=== PATIENT | female | born 1980 | race Caucasian/White ===

== ENCOUNTER → 2017-07-01 | Outpatient (CLI) | payer BC ==
[2017-07-01 12:51] LABS: GTGD 50 Grams
[2017-07-02 16:35] LABS: AFP CONCENTRATION 41.4 NG/ML; AFP MULTIPLE OF MEDIAN 0.74; AFPTS GESTATIONAL AGE 19.7 WEEKS; AFPTS INSULIN DEP DIABETIC? NO; AFPTS MATERNAL WT 142 LBS; ALPHA-FETOPROTEIN RACE CAUCASIAN=W; EDD DETERMINED BY ULTRASOUND; HISTORY OF NTD NO; REPEAT SAMPLE? NO
== END | disposition home or self-care (01) ==
LOC: C.LAB1850 09:39
PROVIDERS: ATTEND Obstetrics & Gynecology
DX: Z34.02 Encounter for supervision of normal first pregnancy, second trimester (principal)

== ENCOUNTER → 2017-09-02 | Outpatient (CLI) | payer BC ==
[2017-09-02 12:23] LABS: GTGD 50 Grams
[2017-09-02 12:44] LABS: HEMATOCRIT 32.6 % (37-47); MEAN CELL VOLUME 90.1 fL (80-100); MEAN CORPUSCULAR HEMOGLOBIN 29.8 pg (25-34); MEAN CORPUSCULAR HGB CONC 33.1 g/dl (32-36); PLATELET COUNT 96 K/uL (130-400); PLT ESTIMATE DECREASED; RED BLOOD COUNT 3.62 M/uL (4.2-5.4); WHITE BLOOD COUNT 7.52 K/uL (4.8-10.8)
[2017-09-02 14:20] LABS: URINE APPEARANCE CLEAR (CLEAR); URINE BILIRUBIN NEG (NEG); URINE COLOR DK YELLOW; URINE EPITHELIAL CELL AUTO 20-30 /lpf (0-5); URINE NITRITE NEG (NEG); URINE SPECIFIC GRAVITY 1.019 (1.000-1.030); UROBILINOGEN NEG (NEG)
[2017-09-02 14:27] LABS: MANUAL MICROSCOPIC REQUIRED? NO; REVIEW REQ? NO
== END | disposition home or self-care (01) ==
LOC: C.LAB1850 09:39
PROVIDERS: ATTEND Obstetrics & Gynecology
DX: O99.119 Other diseases of the blood and blood-forming organs and certain disorders involving the immune mechanism complicating pregnancy, unspecified trimester (principal); Z3A.00 Weeks of gestation of pregnancy not specified

== ENCOUNTER 2017-09-15 11:36 | Outpatient (CLI) | payer BC ==
[~2017-09-15] VITALS: Ht 167.6 cm; Wt 71.7 kg
[2017-09-15] MEDS ORDERED: NIFEdipine 10 MG CAP PO STA (12:42)
[2017-09-15 12:54] LABS: BASO % 0.4 %; BASO ABS # 0.04 K/uL (0-0.2); COMPLETE YES; EOS % 0.7 %; HEMATOCRIT 36.7 % (37-47); IG% 0.5 %; LYMPH % 18.5 %; LYMPH ABS # 2.03 K/uL (1.2-3.4); MEAN CELL VOLUME 88.6 fL (80-100); MEAN CORPUSCULAR HEMOGLOBIN 30.2 pg (25-34); MEAN CORPUSCULAR HGB CONC 34.1 g/dl (32-36); MEAN PLATELET VOLUME 11.6 fL (7.4-10.4); MONO % 6.3 %; NEUT % 73.6 %; PLATELET COUNT 107 K/uL (130-400); RED BLOOD COUNT 4.14 M/uL (4.2-5.4)
[2017-09-15 13:15] VITALS: Ht 167.6 cm; Wt 71.7 kg
[2017-09-15] MEDS ORDERED: OPTIRAY 320 IV PRN (13:15)
[2017-09-15 13:20] LABS: ALB/GLOB RATIO 0.6 (0.9-2); BUN/CREATININE RATIO 11.7 (10-20); CALCIUM 8.4 mg/dl (8.5-10.1); CREATININE 0.94 mg/dl (0.60-1.20); POTASSIUM 3.9 mmol/L (3.5-5.1); URIC ACID 5.8 mg/dl (2.6-7.2)
[2017-09-15] MEDS ORDERED: PRENTAB26 PO (13:25)
[2017-09-15] MEDS ORDERED: DEXT1SYP6 (13:25)
[2017-09-15 14:13] LABS: URINE APPEARANCE CLEAR (CLEAR); URINE BILIRUBIN NEG (NEG); URINE COLOR YELLOW; URINE EPITHELIAL CELL AUTO >30 /lpf (0-5); URINE NITRITE NEG (NEG); URINE SPECIFIC GRAVITY 1.011 (1.000-1.030); UROBILINOGEN NEG (NEG); ZZUR CULT IF INDIC CLEAN CATCH NO
[2017-09-15 14:16] LABS: MANUAL MICROSCOPIC REQUIRED? NO; REVIEW REQ? NO
--- NOTE | 2017-09-15 14:31 | DIAGNOSTIC IMAGING REPORT ---
CT ANGIOGRAM OF THE CHEST CLINICAL HISTORY: Dyspnea. Hypertension. . COMPARISON STUDY: No priors. TECHNIQUE: Following the IV administration of 88 cc of Optiray 320, CT angiogram of the chest was performed from the upper abdomen to the thoracic inlet utilizing the pulmonary embolus protocol. Images are reviewed in the axial, sagittal, and coronal planes. 3-D MIPS images are created and assessed. IV contrast was administered without complication. A dose lowering technique was utilized adhering to the principles of ALARA. The examination is degraded by motion artifact. CT DOSE: 272.00 mGy.cm FINDINGS: Thyroid: Imaged portions of the thyroid gland are normal in size and attenuation. Thoracic aorta: The thoracic aorta is normal in caliber and demonstrates standard 3-vessel arch anatomy. No dissection is seen. Pulmonary vasculature: The pulmonary trunk is normal in caliber. There are no filling defects identified in main, lobar, or proximal segmental pulmonary branches to suggest pulmonary embolus. Evaluation of the peripheral branches is degraded by motion artifact. Heart: The heart is normal in size and configuration, and without pericardial effusion. Lungs and pleural spaces: Evaluation of the lung parenchyma is degraded by motion artifact. The trachea and central airways are clear. There are moderate pleural effusions with associated atelectasis. There is patchy airspace consolidation seen throughout the left lung. Patchy consolidation is also seen in the right upper lobe. Mediastinum: There is no mediastinal lymphadenopathy. Jacy: Clear. Axillae: There is no axillary lymphadenopathy. Upper abdomen: Partially visualized upper abdominal viscera is within normal limits. Skeletal structures: No lytic or blastic bony lesions are seen. IMPRESSION: 1. Motion degraded examination. 2. There is no evidence of pulmonary embolus in the main, lobar, or proximal segmental pulmonary arteries. 3. Moderate pleural effusions with bibasilar atelectasis. 4. Patchy airspace consolidation is seen throughout both lungs, left greater than right. This likely represents multifocal pneumonia. Pulmonary edema is considered less likely but is the top differential consideration. Clinical correlation will be required. Electronically signed by: William Trivedi M.D. 09/15/2017 2:30 PM Dictated Date/Time: 09/15/2017 2:26 PM
[2017-09-15] MEDS ORDERED: BENZ1CAP90 PO (15:05)
[2017-09-15] MEDS ORDERED: AZITTAB PO (15:05)
[2017-09-15 15:57] LABS: INFLUENZA A PCR Neg for Influ A (NEG); INFLUENZA B PCR Neg for Influ B (NEG)
== END 2017-09-15 15:30 | disposition home or self-care (01) ==
LOC: C.LD 11:36 → C.OPB 11:36
PROVIDERS: ATTEND Obstetrics & Gynecology
DX: O99.89 Other specified diseases and conditions complicating pregnancy, childbirth and the puerperium (principal); R03.0 Elevated blood-pressure reading, without diagnosis of hypertension; R06.02 Shortness of breath; O99.113 Other diseases of the blood and blood-forming organs and certain disorders involving the immune mechanism complicating pregnancy, third trimester; D69.6 Thrombocytopenia, unspecified; Z3A.30 30 weeks gestation of pregnancy; Z80.3 Family history of malignant neoplasm of breast

== ENCOUNTER → 2017-09-16 | Outpatient (CLI) | payer BC ==
[~2017-09-16] MED LIST: AZITTAB PO; BENZ1CAP90 PO; DEXT1SYP6; PRENTAB26 PO
== END | disposition home or self-care (01) ==
LOC: C.LABSPEC 16:58
PROVIDERS: ATTEND Obstetrics & Gynecology
DX: J02.9 Acute pharyngitis, unspecified (principal)

== ENCOUNTER 2017-09-18 15:27 | Outpatient (CLI) | payer BC ==
[2017-09-18 16:14] LABS: HEMATOCRIT 34.6 % (37-47); MEAN CELL VOLUME 88.5 fL (80-100); MEAN CORPUSCULAR HEMOGLOBIN 30.4 pg (25-34); RED BLOOD COUNT 3.91 M/uL (4.2-5.4); WHITE BLOOD COUNT 9.75 K/uL (4.8-10.8)
[2017-09-18] MEDS ORDERED: BETAMETH SOD PHOS/ACETATE IA 6 MG/ML ONE (16:14)
[2017-09-18 16:21] LABS: PARTIAL THROMBOPLASTIN RATIO 1.2
[2017-09-18 16:25] LABS: MEAN CORPUSCULAR HGB CONC 34.4 g/dl (32-36)
[2017-09-18] MEDS ORDERED: NIFEdipine 10 MG CAP PO ONE ×2 (16:30→17:00)
[2017-09-18 16:33] LABS: MEAN PLATELET VOLUME 11.6 fL (7.4-10.4); PLATELET COUNT 95 K/uL (130-400)
[2017-09-18 16:36] LABS: BASO % 0.3 %; BASO ABS # 0.03 K/uL (0-0.2); COMPLETE YES; EOS % 0.7 %; IG% 0.4 %; LYMPH % 18.3 %; LYMPH ABS # 1.78 K/uL (1.2-3.4); MONO % 5.1 %; NEUT % 75.2 %; PLT ESTIMATE DECREASED
[2017-09-18 16:51] LABS: ALT/SGPT 21 U/L (12-78); AST/SGOT 36 U/L (15-37); BLOOD UREA NITROGEN 11 mg/dl (7-18); BUN/CREATININE RATIO 11.6 (10-20); CALCIUM 8.5 mg/dl (8.5-10.1); CARBON DIOXIDE 22 mmol/L (21-32); CHLORIDE 103 mmol/L (98-107); CREATININE 0.94 mg/dl (0.60-1.20); GLUCOSE 77 mg/dl (70-99); SODIUM 135 mmol/L (136-145)
[2017-09-18] MEDS ORDERED: BETAMETH SOD PHOS/ACETATE IA 6 MG/ML IM ONE (17:00)
[2017-09-18] MEDS ORDERED: MAGNESIUM SULFATE / WTR 1,000 ML IV ONE (17:03)
[2017-09-18] MEDS ORDERED: MAGNESIUM SULFATE 40GM/ WTR 1,000 ML BAG ONE (17:08)
[2017-09-18] MEDS ORDERED: MAGNESIUM SULFATE 4GM / WTR 4 GM BAG ONE (17:08)
[2017-09-18] MEDS ORDERED: MAGNESIUM SULFATE / WTR 1,000 ML IV SCH (17:15)
[2017-09-18] MEDS ORDERED: MAGNESIUM SULFATE 4GM / WTR 100ML IV ONE (17:15)
[2017-09-18] MEDS ORDERED: LIDOCAINE HCL 2% JELLY 30 ML TUBE EXT ONE (18:18)
[2017-09-18] MEDS ORDERED: ACETAMINOPHEN 325 MG TAB ONE (18:39)
[2017-09-18] MEDS ORDERED: ACETAMINOPHEN 325 MG TAB PO STA (18:41)
[2017-09-18] MEDS ORDERED: LACTATED RINGER'S 1000ML 1,000 ML IV SCH (18:45)
== END 2017-09-18 19:47 | disposition short-term general hospital (02) ==
LOC: C.OPB 15:27 → C.LD 15:27 → C.OPB 19:47
PROVIDERS: ATTEND Obstetrics & Gynecology
DX: O16.3 Unspecified maternal hypertension, third trimester (principal); O12.23 Gestational edema with proteinuria, third trimester; O99.113 Other diseases of the blood and blood-forming organs and certain disorders involving the immune mechanism complicating pregnancy, third trimester; D69.6 Thrombocytopenia, unspecified; Z3A.31 31 weeks gestation of pregnancy

== ENCOUNTER 2023-01-26 09:35 | Observation (INO) ==
--- NOTE | 2023-01-26 10:14 | Emergency Department Note ---
Impression & Plan Extravasation of blood, Acute leg pain, Elevated INR ED Provider Note NAME: ELLIE CHERRY AGE: 42 SEX: F : 1980 ARRIVES VIA: Walk-In INFORMANT: Patient ED PROVIDER(S): Sherwin Link DO CHIEF COMPLAINT: Right lower extremity pain HPI: Patient is a 42-year-old female who presents to the ER for right leg pain. Patient notes that this started yesterday has been gradually getting worse. It is worse with movement. Denies any headache or change in vision. No chest pain or shortness of breath. Does have a history of lupus and has had previous clots and strokes and consequently is on Coumadin. No known low Coumadin numbers that she is aware of. Pain is worse with walking. Improves with rest. Denies all other exacerbating or remitting factors. No tingling or numbness. PAST MEDICAL HISTORY:See Below PAST SURGICAL HISTORY:See Below FAMILY HISTORY:See Below SOCIAL HISTORY:See Below HOME MEDICATIONS:See Below ALLERGIES:See Below VITALS:See Below PHYSICAL EXAMINATION: GENERAL: Sitting up in bed, alert, well appearing, well nourished, no distress, non-toxic EYE EXAM: normal conjunctiva. OROPHARYNX:mucous membranes are moist LUNGS: Clear to auscultation. Normal chest wall mechanics HEART: no murmurs, S1 normal and S2 normal ABDOMEN: abdomen soft, non-tender, normo-active bowel sounds, no masses, no rebound or guarding. UPPER EXTREMITIES: upper extremities are grossly normal. LOWER EXTREMITIES: Flexion-extension right hip knee ankle and EHL intact. DP and PT 2 out of 4. Gross sensation intact. Tenderness over the right femur. Fullness in the right proximal femur comparison to the left. Calves are equal bilateral. NEURO EXAM: Normal sensorium, cranial nerves II-XII grossly intact, normal speech, no gross weakness of arms, no gross weakness of legs. MEDICAL DECISION MAKING: Patient is a 42-year-old female who presents the ER for swelling of the right thumb night. IV was established blood work was obtained. Labs show no signific ant leukocytosis. Hemoglobin 11.7 slightly down from 13. INR was elevated at 5.0. BMP along LFTs bilirubin was unremarkable. COVID was negative. Ultrasound shows no DVT. X-ray of the femur was unremarkable. CT shows hematoma with a small amount of ActiV.A.C strap as discussed with radiologist Dr. Tyler. This was discussed with the hospitalist. Does have a known clotting disorder. No recent PEs. Coumadin reversal was discussed with her at bedside and with the current active bleeding 2. This most appropriate. Compartments are soft in the right thigh currently. DP and PT intact. Given 10 units of IV vitamin K. Discussed with the hospitalist for observation. Triage Nursing notes reviewed. Limited review of prior medical records performed Vital Signs: reviewed and remarkable for no significant abnormalities Differential diagnosis: Differential diagnoses includes but is not limited to gastritis, peptic ulcer disease, GERD, gallbladder disease, pancreatitis, small bowel obstruction, appendicitis, diverticulitis, hernia, urinary tract infection, torsion, perforation, trauma, infectious. ER treatment provided: See below Diagnostics interpreted by me include EKG and cardiac monitoring as listed below: -Cardiac Monitoring: An order was placed for continuous cardiac monitoring. The monitor shows a rate of 70 with sinus rhythm. -ECG: none -Laboratory studies:Interpreted by me as stated above in MDM and shown below. Imaging studies: Xrays: As interpreted by me: X-ray of the right femur shows no acute fracture CTs show: CT shows small amount of active extra have into the right thigh Duplex shows no DVT Consultation(s): As described in MDM Procedures:none Past Med/Surg History Medical History Antiphospholipid syndrome History of severe pre-eclampsia reports heart failure, kidney failure, intubated on ventilator after emergency 09/2017 - [facility] Lacunar infarction seen on MRIs Lupus Migraines Mitral valve regurgitation follows kiko/ Dr. Brown Surgical History History of bilateral breast reduction surgery History of History of colonoscopy History of wisdom tooth extraction Family History Grandfather (Maternal) Family history of diabetes mellitus Social History Smoking Status: Never smoker Second Hand Exposure: No; Hx Alcohol Use: Yes Alcohol type: wine Hx Substance Use: No Preferred Language: Kazakh Communication Ability: Effective Factory Hand Required: No Beliefs That Will Affect Care: None Current Living Situation: Spouse Feels Safe at Home: Yes Assistive Devices: Contacts and Glasses Allergies Allergies Allergy/AdvReac Type Severity Reaction Status Date / Time bee venom protein (honey bee) Allergy Intermediate SHORTNESS Verified 01/26/23 15:33 OF BREATH Home Meds Home Medications Medication Instructions Recorded Confirmed aspirin 81 mg chewable tablet 81 mg PO DAILY 01/26/23 01/26/23 ferrous sulfate 325 mg (65 mg 325 mg PO DAILY 01/26/23 01/26/23 iron) tablet hydroxychloroquine 200 mg tablet 300 mg PO HS 01/26/23 01/26/23 loratadine 10 mg tablet 10 mg PO DAILY PRN Allergy Symptoms 01/26/23 01/26/23 magnesium oxide 400 mg PO DAILY 01/26/23 01/26/23 montelukast 10 mg tablet 10 mg PO DAILY 01/26/23 01/26/23 riboflavin (vitamin B2) 400 mg 400 mg PO DAILY 01/26/23 01/26/23 tablet ubrogepant 50 mg tablet (Ubrelvy) 50 mg PO UD PRN Migraine Headache 01/26/23 01/26/23 valacyclovir 500 mg tablet 500 mg PO DAILY 01/26/23 01/26/23 warfarin 5 mg tablet 20 mg PO UD 01/26/23 01/26/23 Results & Data (ED) Vital Signs Vital Signs - 24 hr 01/26/23 09:40 01/26/23 10:21 01/26/23 10:26 Temperature 37.1 C Temperature Source Temporal Artery Scan Pulse Rate 86 Pulse Rate [Apical] 75 Pulse Rate from SpO2 Sensor Respiratory Rate 18 18 Respiratory Effort / Characteristics Non-Labored Spontaneous Respiratory Depth Normal Blood Pressure 127/78 Blood Pressure [Left Arm] 125/80 Blood Pressure Mean 94 Blood Pressure Mean [Left Arm] 95 Pulse Oximetry 99 99 98 Oxygen Delivery Method Room Air Room Air Room Air Sepsis Recent Fever Within 48 Hours No Sepsis New/Unexplained Change in Mental Status No Sepsis Action Taken by Nursing No Action Required 01/26/23 10:52 01/26/23 11:51 01/26/23 14:20 Temperature Temperature Source Pulse Rate 76 Pulse Rate [Apical] 71 80 Pulse Rate from SpO2 Sensor Respiratory Rate 16 18 Respiratory Effort / Characteristics Non-Labored Spontaneous Non-Labored Spontaneous Respiratory Depth Normal Normal Blood Pressure Blood Pressure [Left Arm] 123/93 150/92 H Blood Pressure Mean Blood Pressure Mean [Left Arm] 103 111 Pulse Oximetry 100 98 Oxygen Delivery Method Room Air Room Air Sepsis Recent Fever Within 48 Hours Sepsis New/Unexplained Change in Mental Status Sepsis Action Taken by Nursing 01/26/23 14:47 01/26/23 10:31 01/26/23 11:04 Temperature Temperature Source Pulse Rate 76 80 Pulse Rate [Apical] 78 Pulse Rate from SpO2 Sensor 77 Respiratory Rate 18 22 Respiratory Effort / Characteristics Non-Labored Spontaneous Respiratory Depth Normal Blood Pressure Blood Pressure [Left Arm] 154/94 H Blood Pressure Mean Blood Pressure Mean [Left Arm] 114 Pulse Oximetry 97 98 Oxygen Delivery Method Room Air Sepsis Recent Fever Within 48 Hours Sepsis New/Unexplained Change in Mental Status Sepsis Action Taken by Nursing 01/26/23 11:05 01/26/23 11:05 01/26/23 11:15 Temperature Temperature Source Pulse Rate 76 73 Pulse Rate [Apical] Pulse Rate from SpO2 Sensor 77 73 Respiratory Rate 17 16 Respiratory Effort / Characteristics Respiratory Depth Blood Pressure 116/85 Blood Pressure [Left Arm] Blood Pressure Mean 95 Blood Pressure Mean [Left Arm] Pulse Oximetry 98 99 Oxygen Delivery Method Sepsis Recent Fever Within 48 Hours Sepsis New/Unexplained Change in Mental Status Sepsis Action Taken by Nursing 01/26/23 11:30 01/26/23 11:30 01/26/23 11:45 Temperature Temperature Source Pulse Rate 75 73 Pulse Rate [Apical] Pulse Rate from SpO2 Sensor 75 73 Respiratory Rate 19 15 Respiratory Effort / Characteristics Respiratory Depth Blood Pressure 123/93 Blood Pressure [Left Arm] Blood Pressure Mean 103 Blood Pressure Mean [Left Arm] Pulse Oximetry 96 100 Oxygen Delivery Method Sepsis Recent Fever Within 48 Hours Sepsis New/Unexplained Change in Mental Status Sepsis Action Taken by Nursing 01/26/23 12:00 01/26/23 12:00 01/26/23 12:15 Temperature Temperature Source Pulse Rate 81 80 Pulse Rate [Apical] Pulse Rate from SpO2 Sensor 80 Respiratory Rate 15 20 Respiratory Effort / Characteristics Respiratory Depth Blood Pressure 118/87 Blood Pressure [Left Arm] Blood Pressure Mean 97 Blood Pressure Mean [Left Arm] Pulse Oximetry 99 Oxygen Delivery Method Sepsis Recent Fever Within 48 Hours Sepsis New/Unexplained Change in Mental Status Sepsis Action Taken by Nursing 01/26/23 12:30 01/26/23 14:24 01/26/23 14:30 Temperature Temperature Source Pulse Rate 75 72 86 Pulse Rate [Apical] Pulse Rate from SpO2 Sensor 74 73 87 Respiratory Rate 21 17 14 Respiratory Effort / Characteristics Respiratory Depth Blood Pressure Blood Pressure [Left Arm] Blood Pressure Mean Blood Pressure Mean [Left Arm] Pulse Oximetry 100 100 99 Oxygen Delivery Method Sepsis Recent Fever Within 48 Hours Sepsis New/Unexplained Change in Mental Status Sepsis Action Taken by Nursing 01/26/23 14:43 01/26/23 14:43 01/26/23 14:45 Temperature Temperature Source Pulse Rate 74 84 Pulse Rate [Apical] Pulse Rate from SpO2 Sensor Respiratory Rate 20 16 Respiratory Effort / Characteristics Respiratory Depth Blood Pressure 154/94 H Blood Pressure [Left Arm] Blood Pressure Mean 114 Blood Pressure Mean [Left Arm] Pulse Oximetry Oxygen Delivery Method Sepsis Recent Fever Within 48 Hours Sepsis New/Unexplained Change in Mental Status Sepsis Action Taken by Nursing 01/26/23 15:00 01/26/23 15:15 Temperature Temperature Source Pulse Rate 84 69 Pulse Rate [Apical] Pulse Rate from SpO2 Sensor Respiratory Rate 17 15 Respiratory Effort / Characteristics Respiratory Depth Blood Pressure Blood Pressure [Left Arm] Blood Pressure Mean Blood Pressure Mean [Left Arm] Pulse Oximetry Oxygen Delivery Method Sepsis Recent Fever Within 48 Hours Sepsis New/Unexplained Change in Mental Status Sepsis Action Taken by Nursing Laboratory Data 01/26/23 10:14 01/26/23 10:14 Lab Results 01/26/23 01/26/23 01/26/23 Range/Units 10:14 10:14 10:14 WBC 6.85 (4.8-10.8) K/ul RBC 3.95 L (4.20-5.40) M/uL Hgb 11.7 L (12.0-16.0) g/dl Hct 35.2 L (37.0-47.0) % MCV 89.1 (80.0-100.0) fL MCH 29.6 (25.0-34.0) pg MCHC 33.2 (32.0-36.0) g/dL RDW Std Deviation 41.4 (36.4-46.3) fL RDW Coeff of Brady 12.7 (11.5-14.5) % Plt Count 155 (130-400) K/uL MPV 10.7 (9.4-12.4) fL Immature Gran % (Auto) 0.4 % Neut % (Auto) 80.1 % Lymph % (Auto) 10.2 % [place] % (Auto) 6.6 % Eos % (Auto) 1.8 % Baso % (Auto) 0.9 % Neut # (Auto) 5.49 (1.40-6.50) K/uL Lymph # (Auto) 0.70 L (1.2-3.4) K/uL [place] # (Auto) 0.45 (0.11-0.59) K/uL Eos # (Auto) 0.12 (0-0.50) K/uL Baso # (Auto) 0.06 (0-0.2) K/uL Immature Gran # (Auto) 0.03 (0.01-0.20) K/uL PT 48.8 H (9.0-12.0) Seconds INR 5.0 H (0.9-1.1) Sodium 138 (136-145) mmol/L Potassium 4.0 (3.5-5.1) mmol/L Chloride 103 (98-107) mmol/L Carbon Dioxide 30 (21-32) mmol/L Anion Gap 5 (3-11) BUN 19 (6-23) mg/dl Creatinine 0.91 (0.6-1.2) mg/dl Est Cr Clr Drug Dosing 79.9 ml/min Est GFR ( Amer) 91.5 ml/min Est GFR (Non-Af Amer) 78.9 ml/min BUN/Creatinine Ratio 20.9 H (10-20) Glucose 86 (70-99(Fasting)) mg/dl Calcium 8.5 L (8.6-10.3) mg/dl Total Bilirubin 0.5 (0.2-1.0) mg/dl AST 22 (13-39) U/L ALT 11 (7-52) U/L Alkaline Phosphatase 48 (34-104) U/L Total Protein 6.3 (6.0-8.3) gm/dl Albumin 4.1 (3.4-5.0) gm/dl Globulin 2.2 L (2.5-4.0) gm/dl Albumin/Globulin Ratio 1.9 (0.9-2) SARS-CoV-2, RNA, NAAT (NEGATIVE) 01/26/23 Range/Units Unknown WBC (4.8-10.8) K/ul RBC (4.20-5.40) M/uL Hgb (12.0-16.0) g/dl Hct (37.0-47.0) % MCV (80.0-100.0) fL MCH (25.0-34.0) pg MCHC (32.0-36.0) g/dL RDW Std Deviation (36.4-46.3) fL RDW Coeff of Brady (11.5-14.5) % Plt Count (130-400) K/uL MPV (9.4-12.4) fL Immature Gran % (Auto) % Neut % (Auto) % Lymph % (Auto) % [place] % (Auto) % Eos % (Auto) % Baso % (Auto) % Neut # (Auto) (1.40-6.50) K/uL Lymph # (Auto) (1.2-3.4) K/uL [place] # (Auto) (0.11-0.59) K/uL Eos # (Auto) (0-0.50) K/uL Baso # (Auto) (0-0.2) K/uL Immature Gran # (Auto) (0.01-0.20) K/uL PT (9.0-12.0) Seconds INR (0.9-1.1) Sodium (136-145) mmol/L Potassium (3.5-5.1) mmol/L Chloride (98-107) mmol/L Carbon Dioxide (21-32) mmol/L Anion Gap (3-11) BUN (6-23) mg/dl Creatinine (0.6-1.2) mg/dl Est Cr Clr Drug Dosing ml/min Est GFR ( Amer) ml/min Est GFR (Non-Af Amer) ml/min BUN/Creatinine Ratio (10-20) Glucose (70-99(Fasting)) mg/dl Calcium (8.6-10.3) mg/dl Total Bilirubin (0.2-1.0) mg/dl AST (13-39) U/L ALT (7-52) U/L Alkaline Phosphatase (34-104) U/L Total Protein (6.0-8.3) gm/dl Albumin (3.4-5.0) gm/dl Globulin (2.5-4.0) gm/dl Albumin/Globulin Ratio (0.9-2) SARS-CoV-2, RNA, NAAT NEGATIVE (NEGATIVE) Administered Medications Oxycodone HCl (Oxycodone Hcl Ir 5 Mg Tab (Immediate Release)) 5 mg PO Q6H PRN PRN Reason: Pain Stop: 02/09/23 14:57 Last Admin: 01/26/23 15:32 Dose: 5 mg Documented By: BCN Discontinued Medications Phytonadione 10 mg/ Dextrose 51 mls @ 102 mls/hr IV ONE ONE Stop: 01/26/23 14:10 Last Infusion: 01/26/23 14:34 Dose: 0 mls/hr Documented By: Admin: 01/26/23 14:04 Dose: 102 mls/hr Documented By: JONO Ioversol (Optiray 320 500ml) 102 ml IV ONCE ONE Stop: 01/26/23 13:23 Last Admin: 01/26/23 13:23 Dose: 102 ml Documented By: JUDE Imaging Data Radiologist's Impression: Femur X-Ray 01/26/23 10:09 XR femur RT 2V routine CLINICAL HISTORY: Right femur pain. COMPARISON: None FINDINGS: Intrauterine device is incidentally noted. Alignment of the right hip and right knee is anatomic. There is no fracture or osseous lesion within the right femur. No right knee joint effusion. Right hip joint space is preserved. IMPRESSION: Unremarkable right femur radiographs. ACT 112: Negative or not required by law. Electronically signed by: Geovanny Tyler M.D. 01/26/2023 12:22 PM Venous Doppler Study 01/26/23 10:09 RIGHT LOWER EXTREMITY VENOUS DOPPLER CLINICAL HISTORY: Right lower extremity pain. Evaluate for deep venous thrombus. COMPARISON STUDY: Right lower extremity venous Doppler ultrasound January 11, 2023. TECHNIQUE: Sonography of the deep venous system of the right lower extremity was performed. Compression and augmentation were evaluated. FINDINGS: The right common femoral, superficial femoral and popliteal veins were compressible. Augmentation was normal. Flow was shown within the deep calf vessels. IMPRESSION: No evidence of deep venous thrombus within the right lower extremity. ACT 112: Negative or not required by law. Electronically signed by: Geovanny Tyler M.D. 01/26/2023 10:56 AM Lower Extremity CTA 01/26/23 12:40 RIGHT FEMUR/THIGH CTA CLINICAL HISTORY: Right femoral pain/swelling w/ inr 5. COMPARISON STUDY: Right lower extremity venous Doppler ultrasound performed earlier today. TECHNIQUE: Helical axial images of the right thigh and femur were obtained following intravenous injection of 102 cc of Optiray 320 IV. Sagittal and coronal reconstructions were viewed as well as maximal intensity projections on an independent 3-D workstation. Automated exposure control was utilized for the study. A dose lowering technique was utilized adhering to the principles of ALARA. FINDINGS: A small amount of low-attenuation fluid within the pelvis is likely physiologic. Intrauterine device is incidentally noted. There is no acute fracture within the right femur. There is no osseous lesion. The right common femoral and superficial femoral arteries are patent. Note is made of heterogeneous enlargement of the right adductor tata muscle with adjacent fluid and stranding consistent with hemorrhage. The findings represent intramuscular hemorrhage. There is a subtle 6 mm linear focus of contrast within the central aspect of this muscle on axial image 199 of 476. This could reflect active extravasation or less likely a pseudoaneurysm. No additional foci of active extravasation identified within the right thigh. A small amount of hemorrhage extends inferiorly to the level of the distal right femur. IMPRESSION: Heterogeneous enlargement of the right adductor tata muscle with adjacent fluid and stranding consistent with hemorrhage. The findings represent acute intramuscular hemorrhage, likely moderate in amount. Subtle 6 mm linear focus of contrast within the central aspect of this muscle is suggestive of active extravasation. A small pseudoaneurysm could appear similar although is c onsidered less likely. Findings discussed with Dr. Link at time of dictation. ACT 112: Negative or not required by law. Electronically signed by: Geovanny Tyler M.D. 01/26/2023 1:45 PM Discharge Plan Visit Data Chief Complaint: Swelling/Edema to Extremity Stated Complaint: BLOOD CLOTTING DISORDER, CLOT IN LEG ED Provider: Sherwin Link Discharge Problem: Extravasation of blood, Acute leg pain, Elevated INR Discharge Instructions Activity Restrictions/Additional Instructions: Please follow up with your primary care doctor with in the next 24 hours. Any worsening of your symptoms, please return to the ED immediately. This includes any fevers greater than 100.4, worsening pain, chest pain, shortness breath, persistent nausea, vomiting, unable to eat or drink, weakness or numbness in the leg, unable to urinate, unable to move your bowels, or any other concerning signs or symptoms from your standpoint. Your INR was found to be elevated at 5. I would refrain from taking it for the next 24 hours. I would follow back up with your prescribing physician first thing Friday morning and have it rechecked and discussed with them appropriate dosing. You were found to have a blood pressure greater than 120 systolic over 90 diastolic. Due to the new Medicare guidelines, we are now recommending that you follow up with your primary care doctor in regards to this elevated blood pressure. Forms Stand Alone Forms: My [facility] Prescriptions Prescriptions: No Action valacyclovir 500 mg tablet 500 mg PO DAILY ferrous sulfate 325 mg (65 mg iron) Tablet 325 mg PO DAILY warfarin 5 mg tablet 20 mg PO UD Rx Instructions: Per anticoagulation clinic aspirin 81 mg Tablet,Chewable 81 mg PO DAILY montelukast 10 mg tablet 10 mg PO DAILY hydroxychloroquine 200 mg tablet 300 mg PO HS loratadine 10 mg Tablet 10 mg PO DAILY PRN (Reason: Allergy Symptoms) riboflavin (vitamin B2) 400 mg Tablet 400 mg PO DAILY magnesium oxide 400 mg magnesium Tablet 400 mg PO DAILY Ubrelvy 50 mg tablet 50 mg PO UD PRN (Reason: Migraine Headache) Rx Instructions: Take 1 tablet at onset of migraine and may repeat in 2 hours if needed. No m ore then 2 tablets in 24 hours Referrals Referrals: Shivani Gamboa MD [Primary Care Provider] -
[2023-01-26 10:40] LABS: Basophils # (auto) 0.06 K/uL (0-0.2); Basophils % (auto) 0.9 %; Eosinophils # (auto) 0.12 K/uL (0-0.50); Eosinophils % (auto) 1.8 %; Hematocrit (blood only) 35.2 % (37.0-47.0); Hemoglobin 11.7 g/dl (12.0-16.0); Immature Granulocytes # (auto) 0.03 K/uL (0.01-0.20); Immature Granulocytes % (auto) 0.4 %; Lymphocytes % (auto) 10.2 %; Mean Corpuscular Hemoglobin 29.6 pg (25.0-34.0); Mean Corpuscular Hgb Conc 33.2 g/dL (32.0-36.0); Mean Corpuscular Volume 89.1 fL (80.0-100.0); Mean Platelet Volume 10.7 fL (9.4-12.4); Monocytes # (auto) 0.45 K/uL (0.11-0.59); Monocytes % (auto) 6.6 %; Neutrophils # (auto) 5.49 K/uL (1.40-6.50); Neutrophils % (auto) 80.1 %; Platelet Count 155 K/uL (130-400); RDW Coefficient of Variation 12.7 % (11.5-14.5); RDW Standard Deviation 41.4 fL (36.4-46.3); Red Blood Count 3.95 M/uL (4.20-5.40); White Blood Count 6.85 K/ul (4.8-10.8)
[2023-01-26 10:53] LABS: Albumin Globulin Ratio 1.9 (0.9-2); Albumin Level 4.1 gm/dl (3.4-5.0); BUN Creatinine Ratio 20.9 (10-20); Bilirubin,Total 0.5 mg/dl (0.2-1.0); Calcium 8.5 mg/dl (8.6-10.3); Creatinine Clr Calc Pharmacy 79.9 ml/min; Est GFR (African American) 91.5 ml/min; Est GFR (Non-African American) 78.9 ml/min; Globulin 2.2 gm/dl (2.5-4.0); Total Protein 6.3 gm/dl (6.0-8.3)
--- NOTE | 2023-01-26 10:58 | Ultrasound Report ---
RIGHT LOWER EXTREMITY VENOUS DOPPLER CLINICAL HISTORY: Right lower extremity pain. Evaluate for deep venous thrombus. COMPARISON STUDY: Right lower extremity venous Doppler ultrasound January 11, 2023. TECHNIQUE: Sonography of the deep venous system of the right lower extremity was performed. Compress ion and augmentation were evaluated. FINDINGS: The right common femoral, superficial femoral and popliteal veins were compressible. Augme ntation was normal. Flow was shown within the deep calf vessels. IMPRESSION: No evidence of deep venous thrombus within the right lower extremity. ACT 112: Negative or not required by law. Electronically signed by: Geovanny Tyler M.D. 01/26/2023 10:56 AM
[2023-01-26 11:09] LABS: Prothrombin Time 48.8 Seconds (9.0-12.0)
--- NOTE | 2023-01-26 12:23 | XRay Report ---
XR femur RT 2V routine CLINICAL HISTORY: Right femur pain. COMPARISON: None FINDINGS: Intrauterine device is incidentally noted. Alignment of the right hip and right knee is an atomic. There is no fracture or osseous lesion within the right femur. No right knee joint effusion. Right hip joint space is preserved. IMPRESSION: Unremarkable right femur radiographs. ACT 112: Negative or not required by law. Electronically signed by: Geovanny Tyler M.D. 01/26/2023 12:22 PM
[2023-01-26] MEDS ORDERED: OPTIRAY 320 500ml IV ONE (13:22)
[2023-01-26] MEDS ORDERED: PHYTONADIONE 10 MG in DEXTROSE 5% 50 ML IV ONE (13:41)
--- NOTE | 2023-01-26 13:48 | CT Scan Report ---
RIGHT FEMUR/THIGH CTA CLINICAL HISTORY: Right femoral pain/swelling w/ inr 5. COMPARISON STUDY: Right lower extremity venous Doppler ultrasound performed earlier today. TECHNIQUE: Helical axial images of the right thigh and femur were obtained following intravenous inje ction of 102 cc of Optiray 320 IV. Sagittal and coronal reconstructions were viewed as well as tristen l intensity projections on an independent 3-D workstation. Automated exposure control was utilized fo r the study. A dose lowering technique was utilized adhering to the principles of ALARA. FINDINGS: A small amount of low-attenuation fluid within the pelvis is likely physiologic. Intrauteri ne device is incidentally noted. There is no acute fracture within the right femur. There is no osseo us lesion. The right common femoral and superficial femoral arteries are patent. Note is made of hete rogeneous enlargement of the right adductor tata muscle with adjacent fluid and stranding consisten t with hemorrhage. The findings represent intramuscular hemorrhage. There is a subtle 6 mm linear foc us of contrast within the central aspect of this muscle on axial image 199 of 476. This could reflect active extravasation or less likely a pseudoaneurysm. No additional foci of active extravasation sandi ntified within the right thigh. A small amount of hemorrhage extends inferiorly to the level of the d istal right femur. IMPRESSION: Heterogeneous enlargement of the right adductor tata muscle with adjacent fluid and str anding consistent with hemorrhage. The findings represent acute intramuscular hemorrhage, likely mode rate in amount. Subtle 6 mm linear focus of contrast within the central aspect of this muscle is sugg estive of active extravasation. A small pseudoaneurysm could appear similar although is considered le ss likely. Findings discussed with Dr. Link at time of dictation. ACT 112: Negative or not required by law. Electronically signed by: Geovanny Tyler M.D. 01/26/2023 1:45 PM
[2023-01-26] MEDS ORDERED: oxyCODONE HCL IR 5 MG TAB (IMMEDIATE RELEASE) PO PRN (14:58)
--- NOTE | 2023-01-26 15:25 | History & Physical Report ---
Date of Service January 26, 2023 Assessment & Plan (1) Hemorrhage of muscle: Plan: 42 y/o female with lupus, antiphospholipid syndrome on chronic AC with warfarin, migraine HAs, prior MRI showing chronic lacunar infarcts, prior preeclampsia/HELLP syndrome, and history of moderate to severe mitral regurgitation who presented to the ED today with worsening right thigh pain and swelling and was found on CTA to have moderate acute intramuscular hemorrhage of right adductor devon muscle and a supratherapeutic INR. Given IV vitamin K 10 mg x 1 in the ED. - Admit to PCU for observation overnight - If acutely worsening pain, new numbness/tingling in right foot, pt to notify nursing and will order urgent repeat imaging - otherwise, repeat CTA in AM to monitor hemorrhage - CBC, PT/INR in AM - holding warfarin and aspirin for now - Consult orthopedics - pt has previously seen [facility] so will put consult in for their practice - PRN oxycodone ordered for pain (2) Supratherapeutic INR: Plan: See plan for #1 - will need close f/u with [facility] as outpatient (3) Lupus: (4) Antiphospholipid syndrome: (5) Chronic anticoagulation: (6) Migraines: Plan: Pt will bring in her Ubrelvy from home to take as needed Plan Continue other home medications as appropriate Pt seen and reviewed with collaborating physician, Dr. Lee. Plan of care discussed and as outlined above. Code Status: Full code DVT Prophylaxis: AC on hold due to IM hemorrhage. Ambulation as tolerated. Re- eval in AM. Lucien Valera PA-C History of Present Illness Chief Complaint: right thigh pain Primary Care Provider: Shivani Gamboa MD This is a 42 y/o female with lupus, antiphospholipid syndrome on chronic AC with warfarin, migraine HAs, MRI showing chronic lacunar infarcts, prior preeclampsia/HELLP syndrome, and history of moderate to severe mitral regurgitation who presented to the ED today with worsening right thigh pain and swelling. Pt first noticed the pain in her posterior right thigh yesterday while getting ready for her son's birthday libertarian. She noted that it was worse with pressure to the area, such as sitting, and that her jeans were a little light in the right thigh. Took some ibuprofen for the pain but by last night it was so severe that she couldn't sit or put any pressure on the area. This morning, she noted increased swelling and pain in the area so she came to the ED for evaluation. She has never had pain like this before. She denies any known injury or trauma to the area. INR on 01/17 was therapeutic at 2.1. No new medications or supplements recently. Of note, she was seen in the ED a couple of weeks ago after she developed swelling and ecchymosis behind her right knee. She had recently flown so she was concerned about possible DVT - work-up in the ED was negative for DVT but did show a small popliteal hematoma, which has since improved. Allergies Allergy/AdvReac Type Severity Reaction Status Date / Time bee venom protein (honey bee) Allergy Intermediate SHORTNESS Verified 01/26/23 15:33 OF BREATH Home Medications Medication Instructions Recorded Confirmed Type aspirin 81 mg chewable tablet 81 mg PO DAILY 01/26/23 01/26/23 History ferrous sulfate 325 mg (65 mg 325 mg PO DAILY 01/26/23 01/26/23 History iron) tablet hydroxychloroquine 200 mg tablet 300 mg PO HS 01/26/23 01/26/23 History loratadine 10 mg tablet 10 mg PO DAILY PRN Allergy Symptoms 01/26/23 01/26/23 History magnesium oxide 400 mg PO DAILY 01/26/23 01/26/23 History montelukast 10 mg tablet 10 mg PO DAILY 01/26/23 01/26/23 History riboflavin (vitamin B2) 400 mg 400 mg PO DAILY 01/26/23 01/26/23 History tablet ubrogepant 50 mg tablet (Ubrelvy) 50 mg PO UD PRN Migraine Headache 01/26/23 01/26/23 History valacyclovir 500 mg tablet 500 mg PO DAILY 01/26/23 01/26/23 History warfarin 5 mg tablet 20 mg PO UD 01/26/23 01/26/23 History Past Med/Surg History Medical History Antiphospholipid syndrome History of severe pre-eclampsia reports heart failure, kidney failure, intubated on ventilator after emergency 09/2017 - [facility] Lacunar infarction seen on MRIs Lupus Migraines Mitral valve regurgitation follows w/ Dr. Brown Surgical History History of bilateral breast reduction surgery History of History of colonoscopy History of wisdom tooth extraction Family History Grandfather (Maternal) Family history of diabetes mellitus Social History Smoking Status: Never smoker Second Hand Exposure: No; Do You Dip or Chew Tobacco: No; Hx Alcohol Use: Yes Alcohol type: wine Hx Substance Use: No Preferred Language: Turkish Communication Ability: Effective Concrete Smoother Required: No Beliefs That Will Affect Care: None Current Living Situation: Spouse Other Information That Helps Us Care for You: No Feels Safe at Home: Yes Safety Concerns: Feels Safe At This Time Assistive Devices: None Review of Systems Review of Systems: All systems reviewed & are unremarkable except as noted in HPI & below Constitutional: no fever and no chills Eyes: no diplopia Respiratory: no cough, no dyspnea and no wheezing Cardiovascular: no chest pain, no palpitations and no syncope Gastrointestinal: no abdominal pain, no nausea and no vomiting Genitourinary: no dysuria and no hematuria Musculoskeletal: as per Subjective / HPI Integumentary: no yellowing of the skin Neurologic: no localized weakness, no loss of sensation, no tingling and no numbness Psychiatric: no depression and no anxiety Physical Exam Constitutional: well developed and well nourished; no acute distress Eyes: + anicteric sclerae Neck: trachea midline Respiratory: no respiratory distress and no labored breathing Auscultation: lungs clear to auscultation bilaterally; no rales, no rhonchi and no wheezes Cardiovascular: Rate/Rhythm: regular rate and regular rhythm Heart Sounds: + murmur Vessels: dorsalis pedis pulses present and radial pulses present Extremities: no pedal edema Gastrointestinal (Abdomen): Inspection/Auscultation: normal bowel sounds; abdomen not distended Percussion/Palpation: abdomen soft; abdomen nontender Musculoskeletal: right thigh with compression wrap in place - tender to palpation medial posterior thigh on right, no overt ecchymosis, +swelling Skin: no jaundice Neurologic: moves all extremities; no focal motor deficits and not confused Psychiatric: A+Ox3, euthymic affect Results & Data Results & Data Vital Signs (Past 12 Hours) Vital Signs Temp Pulse Pulse Resp BP BP Pulse Ox 01/26/23 14:47 78 18 154/94 H 97 01/26/23 14:20 80 18 150/92 H 98 01/26/23 11:51 71 16 123/93 100 01/26/23 10:52 76 01/26/23 10:26 75 18 125/80 98 01/26/23 10:21 99 01/26/23 09:40 37.1 C 86 18 127/78 99 O2 Del Method 01/26/23 14:47 Room Air 01/26/23 14:20 Room Air 01/26/23 11:51 Room Air 01/26/23 10:52 01/26/23 10:26 Room Air 01/26/23 10:21 Room Air 01/26/23 09:40 Room Air Laboratory Results Laboratory Results - last 24 hr 01/26/23 01/26/23 01/26/23 10:14 10:14 10:14 WBC 6.85 RBC 3.95 L Hgb 11.7 L Hct 35.2 L MCV 89.1 MCH 29.6 MCHC 33.2 RDW Std Deviation 41.4 RDW Coeff of Brady 12.7 Plt Count 155 MPV 10.7 Immature Gran % (Auto) 0.4 Neut % (Auto) 80.1 Lymph % (Auto) 10.2 Burt % (Auto) 6.6 Eos % (Auto) 1.8 Baso % (Auto) 0.9 Neut # (Auto) 5.49 Lymph # (Auto) 0.70 L Burt # (Auto) 0.45 Eos # (Auto) 0.12 Baso # (Auto) 0.06 Immature Gran # (Auto) 0.03 PT 48.8 H INR 5.0 H Sodium 138 Potassium 4.0 Chloride 103 Carbon Dioxide 30 Anion Gap 5 BUN 19 Creatinine 0.91 Est Cr Clr Drug Dosing 79.9 Est GFR ( Amer) 91.5 Est GFR (Non-Af Amer) 78.9 BUN/Creatinine Ratio 20.9 H Glucose 86 Calcium 8.5 L Total Bilirubin 0.5 AST 22 ALT 11 Alkaline Phosphatase 48 Total Protein 6.3 Albumin 4.1 Globulin 2.2 L Albumin/Globulin Ratio 1.9 SARS-CoV-2, RNA, NAAT 01/26/23 Unknown WBC RBC Hgb Hct MCV MCH MCHC RDW Std Deviation RDW Coeff of Brady Plt Count MPV Immature Gran % (Auto) Neut % (Auto) Lymph % (Auto) Burt % (Auto) Eos % (Auto) Baso % (Auto) Neut # (Auto) Lymph # (Auto) Burt # (Auto) Eos # (Auto) Baso # (Auto) Immature Gran # (Auto) PT INR Sodium Potassium Chloride Carbon Dioxide Anion Gap BUN Creatinine Est Cr Clr Drug Dosing Est GFR ( Amer) Est GFR (Non-Af Amer) BUN/Creatinine Ratio Glucose Calcium Total Bilirubin AST ALT Alkaline Phosphatase Total Protein Albumin Globulin Albumin/Globulin Ratio SARS-CoV-2, RNA, NAAT NEGATIVE Diagnostic Findings Femur X-Ray 01/26/23 10:09 XR femur RT 2V routine CLINICAL HISTORY: Right femur pain. COMPARISON: None FINDINGS: Intrauterine device is incidentally noted. Alignment of the right hip and right knee is anatomic. There is no fracture or osseous lesion within the right femur. No right knee joint effusion. Right hip joint space is preserved. IMPRESSION: Unremarkable right femur radiographs. Venous Doppler Study 01/26/23 10:09 RIGHT LOWER EXTREMITY VENOUS DOPPLER CLINICAL HISTORY: Right lower extremity pain. Evaluate for deep venous thrombus. COMPARISON STUDY: Right lower extremity venous Doppler ultrasound January 11, 2023. TECHNIQUE: Sonography of the deep venous system of the right lower extremity was performed. Compression and augmentation were evaluated. FINDINGS: The right common femoral, superficial femoral and popliteal veins were compressible. Augmentation was normal. Flow was shown within the deep calf vessels. IMPRESSION: No evidence of deep venous thrombus within the right lower extremity. Lower Extremity CTA 01/26/23 12:40 RIGHT FEMUR/THIGH CTA CLINICAL HISTORY: Right femoral pain/swelling w/ inr 5. COMPARISON STUDY: Right lower extremity venous Doppler ultrasound performed earlier today. TECHNIQUE: Helical axial images of the right thigh and femur were obtained following intravenous injection of 102 cc of Optiray 320 IV. Sagittal and coronal reconstructions were viewed as well as maximal intensity projections on an independent 3-D workstation. Automated exposure control was utilized for the study. A dose lowering technique was utilized adhering to the principles of ALARA. FINDINGS: A small amount of low-attenuation fluid within the pelvis is likely physiologic. Intrauterine device is incidentally noted. There is no acute fracture within the right femur. There is no osseous lesion. The right common femoral and superficial femoral arteries are patent. Note is made of heterogeneous enlargement of the right adductor devon muscle with adjacent flu id and stranding consistent with hemorrhage. The findings represent intramuscular hemorrhage. There is a subtle 6 mm linear focus of contrast within the central aspect of this muscle on axial image 199 of 476. This could reflect active extravasation or less likely a pseudoaneurysm. No additional foci of active extravasation identified within the right thigh. A small amount of hemorrhage extends inferiorly to the level of the distal right femur. IMPRESSION: Heterogeneous enlargement of the right adductor devon muscle with adjacent fluid and stranding consistent with hemorrhage. The findings represent acute intramuscular hemorrhage, likely moderate in amount. Subtle 6 mm linear focus of contrast within the central aspect of this muscle is suggestive of active extravasation. A small pseudoaneurysm could appear similar although is considered less likely. Findings discussed with Dr. Link at time of dictation. Medications Administered Discontinued Medications Phytonadione 10 mg/ Dextrose 51 mls @ 102 mls/hr IV ONE ONE Stop: 01/26/23 14:10 Last Infusion: 01/26/23 14:34 Dose: 0 mls/hr Documented By: Admin: 01/26/23 14:04 Dose: 102 mls/hr Documented By: JONO Ioversol (Optiray 320 500ml) 102 ml IV ONCE ONE Stop: 01/26/23 13:23 Last Admin: 01/26/23 13:23 Dose: 102 ml Documented By: JUDE Code Status & VTE Plan VTE Prophylaxis Plan VTE Prophylaxis will be ordered: No Reason for no VTE drug order: Treatment not indicated Supervising Physician Co-Signing Physician Notes Pt is a 42 y/o F with hx of SLE (on Plaquenil), APL (on Coumadin), hx of Lacunar, Moderate Mitral regurgitation, hx of severe preeclampsia, migraine admitted R thigh swelling and pain and dx with acute intramuscular hemorrhage of the R adductor Devon. PE: NAD, well developed Cardiac: Systolic murmur, normal S1/S2 Lungs: CTA, no wheezing or crackles Abd: ND, NT, soft MSK: R thigh swelling, no sign of any ecchymosis or hematoma but mild induration of the inner thigh, normal dorsalis pedis and posterior tibial pulse Psych: AAOx3, normal affect A/P: Acute intramuscular hemorrhage of the R adductor Devon: -no trauma -pt was taking it with aspirin - INR of 5 -----s/p 10 mg of IB vit K -CTA LE: Heterogeneous enlargement of the right adductor devon muscle with adjacent fluid and stranding consistent with hemorrhage. The findings represent acute intramuscular hemorrhage, likely moderate in amount. Subtle 6 mm linear focus of contrast within the central aspect of this muscle is suggestive of active extravasation. A small pseudoaneurysm could appear similar although is considered less likely. -hold aspirin and Coumadin -repeat CTA RLE in the AM ---- if pt experience worsening pain or numbness/tingling of the R foot/leg then sooner -ortho consult SLE and migraine: -will continue plaquenil and prn Ubrelvy Other chronic conditions: plan as above Agree with A/P by Kathy Valera PA-C
[2023-01-26] MEDS ORDERED: LORATADINE 10 MG TAB PO PRN (16:20)
[2023-01-26] MEDS ORDERED: ACETAMINOPHEN 325 MG TAB PO PRN (16:20)
[2023-01-26] MEDS ORDERED: UBROGEPANT 50 MG PO PRN (17:19)
[2023-01-26] MEDS ORDERED: UBRELVY 50 MG PO PRN (17:24)
[2023-01-26] MEDS ORDERED: ONDANSETRON INJ 2 MG/ML 2 ML VIAL IV PRN (19:02)
[2023-01-26] MEDS: HYDROXYCHLOROQUINE SULFATE 200 MG TAB PO SCH (20:02)
[2023-01-26] MEDS: LORazepam 0.5 MG TAB PO PRN (20:02)
--- NOTE | 2023-01-27 06:48 | Orthopedic Consultation ---
Date of Consultation January 27, 2023 Assessment & Plan (1) Hemorrhage of muscle: -Patient doing well this morning, notes improvement of pain. She does still note tenderness to her thigh but compartments remain soft and compressible -Continue to rest, elevate, apply MARVEL compression and ice compresses 20 minutes on/20 minutes off -Recommend trending hgb to ensure stability - last level 11.7 which is down from baseline 13.1 last month -Recommend repeat CTA this morning to reassess hematoma/active extravasation (2) Extravasation of blood: -Recommend vascular surgery consult due to evidence of active extravasation (3) Supratherapeutic INR: -Repeat INR this morning improved from supratherapeutic 5.0 to 1.2 s/p administration of vitamin K 10 mg -Continue to hold Coumadin and ASA per primary (4) Acute leg pain: -Continue pain control per primary Supervising Physician Co-Signing Physician Notes I have seen and examined the patient. Her repeat CT a shows no change since yesterday. There appears to be no active extravasation. Her INR is 1.2. Her right thigh is soft. There are some ecchymosis medially. She has flexion and extension of the knee 0 to 90 degrees. I have recommended continued moist heat to the right thigh. I am not sure if she is a candidate for alternative anticoagulation but I asked her to discuss this with her primary care physician. She can be weightbearing as tolerated using crutches or a walker. And she will follow-up as needed. History of Present Illness Reason for Consultation: Moderate acute intramuscular hemorrhage right adductor tata muscle with evidence of active extravasation Attending Physician: Chang Lee MD History of Present Illness Ms. Castorena is a 42 year old female with history of lupus, antiphospholipid synd bharath on Coumadin, migraines, chronic lacunar infarcts, prior preeclampsia/HELLP syndrome, and history of moderate to severe mitral regurgitation who developed non-traumatic pain and swelling to her right thigh. She did present to the ED yesterday and was ultimately found to have moderate acute intramuscular hemorrhage of right adductor tata muscle on CTA and a supratherapeutic INR at 5.0. She was given IV vitamin K 10 mg x 1 in the ED and was admitted to the hospital for further management. The patient states that she feels improved since yesterday. Her thigh is mix mill tender to the posterior and medial aspect but she notes improvement of this as she is now able to sit/place weight on it and states that it feels softer than it had yesterday. She has not noticed any development of bruising. No pain, swelling or tenderness to her right knee/calf or entire left lower extremity. Denies lightheadedness, dizziness, chest pain, palpitations, shortness of breath or other acute symptoms. Allergies Allergy/AdvReac Type Severity Reaction Status Date / Time bee venom protein (honey bee) Allergy Intermediate SHORTNESS Verified 01/26/23 15:33 OF BREATH Home Medications Medication Instructions Recorded Confirmed Type aspirin 81 mg chewable tablet 81 mg PO DAILY 01/26/23 01/26/23 History ferrous sulfate 325 mg (65 mg 325 mg PO DAILY 01/26/23 01/26/23 History iron) tablet hydroxychloroquine 200 mg tablet 300 mg PO HS 01/26/23 01/26/23 History loratadine 10 mg tablet 10 mg PO DAILY PRN Allergy Symptoms 01/26/23 01/26/23 History magnesium oxide 400 mg PO DAILY 01/26/23 01/26/23 History montelukast 10 mg tablet 10 mg PO DAILY 01/26/23 01/26/23 History riboflavin (vitamin B2) 400 mg 400 mg PO DAILY 01/26/23 01/26/23 History tablet ubrogepant 50 mg tablet (Ubrelvy) 50 mg PO UD PRN Migraine Headache 01/26/23 01/26/23 History valacyclovir 500 mg tablet 500 mg PO DAILY 01/26/23 01/26/23 History warfarin 5 mg tablet 20 mg PO UD 01/26/23 01/26/23 History Patient History Medical History Antiphospholipid syndrome History of severe pre-eclampsia reports heart failure, kidney failure, intubated on ventilator after emergency 09/2017 - [facility] Lacunar infarction seen on MRIs Lupus Migraines Mitral valve regurgitation follows kiko/ Dr. Brown Surgical History History of bilateral breast reduction surgery History of History of colonoscopy History of wisdom tooth extraction Family History Grandfather (Maternal) Family history of diabetes mellitus Social History Smoking Status: Never smoker Second Hand Exposure: No; Do You Dip or Chew Tobacco: No; Hx Alcohol Use: Yes Alcohol type: wine Hx Substance Use: No Preferred Language: Slovak Communication Ability: Effective Battery Starter Required: No Beliefs That Will Affect Care: None Current Living Situation: Spouse Other Information That Helps Us Care for You: No Feels Safe at Home: Yes Safety Concerns: Feels Safe At This Time Assistive Devices: None Review of Systems Review of Systems: All systems were reviewed and were negative unless otherwise noted in HPI as above. Physical Exam Constitutional: Resting in bed, no acute distress Musculoskeletal: RLE: Edema noted to the thigh with tenderness to palpation over the medial and posterior aspects. Compartments remain soft and compressible. Very faint area of ecchymosis to the posterior aspect. No erythema, edema or ecchymosis to the knee or calf, non-tender to palpation. ROM remains intact. Sensation and d/p pulse intact LLE: No ecchymosis, edema or erythema. Continues with FROM. Sensation and d/p pulse intact Skin: no rashes, warm and dry Neurologic: Awake, alert and oriented x 3. Results & Data Vital Signs (Past 12 Hours) Vital Signs Temp Pulse Pulse Resp BP Pulse Ox O2 Del Method 01/27/23 03:41 36.6 C 75 20 125/81 96 Room Air 01/26/23 23:43 36.7 C 75 20 125/81 96 Room Air 01/26/23 23:31 72 01/26/23 19:00 36.8 C 73 20 147/109 H 99 Room Air Diagnostic Findings RLE CTA: Heterogeneous enlargement of the right adductor tata muscle with adjacent fluid and stranding consistent with hemorrhage. The findings represent acute intramuscular hemorrhage, likely moderate in amount. Subtle 6 mm linear focus of contrast within the central aspect of this muscle is suggestive of active extravasation vs. small pseudoaneurysm
[2023-01-27 07:42] LABS: INR 1.2 (0.9-1.1); Prothrombin Time 12.5 Seconds (9.0-12.0)
[2023-01-27] MEDS: VITAMIN B COMPLEX TAB PO SCH (08:36)
[2023-01-27] MEDS: MAGNESIUM OXIDE 400 MG TAB PO SCH (08:36)
[2023-01-27] MEDS: valACYclovir HCL 500 MG TABLET PO SCH (08:36)
[2023-01-27] MEDS: FERROUS SULFATE 325 MG TAB PO SCH (08:36)
[2023-01-27 09:18] LABS: Hematocrit (blood only) 32.3 % (37.0-47.0); Hemoglobin 11.1 g/dl (12.0-16.0); Mean Corpuscular Hemoglobin 30.1 pg (25.0-34.0); Mean Corpuscular Hgb Conc 34.4 g/dL (32.0-36.0); Mean Corpuscular Volume 87.5 fL (80.0-100.0); Mean Platelet Volume 10.7 fL (9.4-12.4); Platelet Count 148 K/uL (130-400); RDW Coefficient of Variation 12.7 % (11.5-14.5); RDW Standard Deviation 40.6 fL (36.4-46.3); Red Blood Count 3.69 M/uL (4.20-5.40); White Blood Count 6.24 K/ul (4.8-10.8)
[2023-01-27 09:39] LABS: BUN Creatinine Ratio 11.7 (10-20); Calcium 8.9 mg/dl (8.6-10.3); Creatinine Clr Calc Pharmacy 77.4 ml/min; Est GFR (Non-African American) 75.9 ml/min
--- NOTE | 2023-01-27 10:23 | Consultation ---
Date of Consultation January 27, 2023 Assessment & Plan (1) Hemorrhage of muscle: Pt with intramuscular hemorrhage of the R adductor. Her pain and swelling have stabilized, her INR is now normal. Review of her original CTA demonstrates an arterial branch in the area of concern, not a clearly active extravasation. No indications for vascular surgical intervention at this time. Would be happy to reeval if new/active bleeding noted on repeat CTA. History of Present Illness Reason for Consultation: intramuscular hemorrhage Attending Physician: Avinash Gomez MD History of Present Illness 42 yo f with hx of lupus, pre-eclampsia with HELLP, antiphospholipid syndrome on chronic AC with warfarin, migraines, lacunar infarcts, admitted with supratherapeutic INR of 5.0 and spontaneous R adductor muscle hemorrhage, seen in consultation for same. Pt was admitted last evening and had CTA done which raised possibility of active extravasation. Pt states the swelling and pain seem to have stabilized/not worsened since last evening. She does not remember any injury to her leg, but does state that she had not been eating as much leafy greens as usual for the past 1 week. She was given 10 of Vit K last evening and her INR is now 1.2. Pt denies HAYDEN, fever, chest pain, SOB, abd pain, N/V, rest pain, claudication, discoloration of toes, other complaints. A repeat CTA has been ordered. Allergies Allergy/AdvReac Type Severity Reaction Status Date / Time bee venom protein (honey bee) Allergy Intermediate SHORTNESS Verified 01/26/23 15:33 OF BREATH Home Medications Medication Instructions Recorded Confirmed Type aspirin 81 mg chewable tablet 81 mg PO DAILY 01/26/23 01/26/23 History ferrous sulfate 325 mg (65 mg 325 mg PO DAILY 01/26/23 01/26/23 History iron) tablet hydroxychloroquine 200 mg tablet 300 mg PO HS 01/26/23 01/26/23 History loratadine 10 mg tablet 10 mg PO DAILY PRN Allergy Symptoms 01/26/23 01/26/23 History magnesium oxide 400 mg PO DAILY 01/26/23 01/26/23 History montelukast 10 mg tablet 10 mg PO DAILY 01/26/23 01/26/23 History riboflavin (vitamin B2) 400 mg 400 mg PO DAILY 01/26/23 01/26/23 History tablet ubrogepant 50 mg tablet (Ubrelvy) 50 mg PO UD PRN Migraine Headache 01/26/23 01/26/23 History valacyclovir 500 mg tablet 500 mg PO DAILY 01/26/23 01/26/23 History warfarin 5 mg tablet 20 mg PO UD 01/26/23 01/26/23 History Patient History Medical History Antiphospholipid syndrome History of severe pre-eclampsia reports heart failure, kidney failure, intubated on ventilator after emergency 09/2017 - [facility] Lacunar infarction seen on MRIs Lupus Migraines Mitral valve regurgitation follows w/ Dr. Brown Surgical History History of bilateral breast reduction surgery History of History of colonoscopy History of wisdom tooth extraction Family History Grandfather (Maternal) Family history of diabetes mellitus Social History Smoking Status: Never smoker Second Hand Exposure: No; Do You Dip or Chew Tobacco: No; Hx Alcohol Use: Yes Alcohol type: wine Hx Substance Use: No Preferred Language: Hong Konger Communication Ability: Effective Vp Medical Required: No Beliefs That Will Affect Care: None Current Living Situation: Spouse Other Information That Helps Us Care for You: No Feels Safe at Home: Yes Safety Concerns: Feels Safe At This Time Assistive Devices: None Review of Systems Review of Systems: All systems reviewed & are unremarkable except as noted in HPI & below Physical Exam Constitutional: WD/WN, vitals as above healthy appearing, cooperative and comfortable; not in distress ENMT: Ears: no hearing impairment Neck: trachea midline Respiratory: normal respiratory effort, lungs clear to auscultation Cardiovascular: Rate/Rhythm: regular rate and regular rhythm Vessels: normal peripheral pulses, brachial pulses present and radial pulses present Extremities: normal capillary refill and + edema (tenderness posterior/medial R thigh) Gastrointestinal (Abdomen): Inspection/Auscultation: abdomen normal to inspection and normal bowel sounds Percussion/Palpation: abdomen soft; abdomen nontender Musculoskeletal: no cyanosis or clubbing, extremities motor strength 5/5 Skin: no rashes, warm and dry Neurologic: moves all extremities and awake; no focal motor deficits and not confused Psychiatric: A+Ox3, euthymic affect Results & Data Vital Signs (Past 12 Hours) Vital Signs Temp Pulse Pulse Resp BP Pulse Ox O2 Del Method 01/27/23 08:30 74 01/27/23 07:04 37.0 C 87 17 127/82 97 Room Air 01/27/23 03:41 36.6 C 75 20 125/81 96 Room Air 01/26/23 23:43 36.7 C 75 20 125/81 96 Room Air 01/26/23 23:31 72
[2023-01-27] MEDS ORDERED: OPTIRAY 320 500ml IV ONE (10:47)
--- NOTE | 2023-01-27 11:37 | CT Scan Report ---
CT angio femur RT wo/w con HISTORY: 42 years-old Female follow-up intramuscular hemorrhage follow-up study in a patient with re ported intramuscular hemorrhage seen on study from 01/26/2023 COMPARISON: CTA right femur 01/26/2023 TECHNIQUE: CTA of the right femur was obtained both with and without the use of 110 mL Optiray. A dos e lowering technique was used consistent with the principals of ELIDIA. 3-D coronal and sagittal MIPS were obtained and reviewed. All measurements were obtained according to NASCET criteria. FINDINGS: IUD of the mid uterus. Urinary bladder wall thickening with partial distention. Small amount of likel y physiologic free pelvic fluid. No acute fracture or dislocation. Moderate heterogeneous enlargement of the adductor tata muscle with adjacent fluid and stranding is similar to yesteradwoa's study. 6 m m focus of contrast in the central aspect of the muscle is noted on image 150 of series 5. A similar size focus was noted on the prior study. Hemorrhage extends into the popliteal fossa. Tendons and lig aments are not well evaluated by CT technique. IMPRESSION: No significant change from the study obtained less than 24 hours earlier. There is persis tent moderate amount of intramuscular hemorrhage within the adductor tata muscle with 6 mm focus of pseudoaneurysm versus active extravasation. The amount of hemorrhage has not significantly changed f rom yesteradwoa's study. ACT 112: Negative or not required by law. The above report was generated using voice recognition software. It may contain grammatical, syntax o r spelling errors. Electronically signed by: Arvin Laurent M.D. 01/27/2023 11:34 AM
[2023-01-27 14:51] LABS: Hematocrit (blood only) 30.7 % (37.0-47.0); Hemoglobin 10.5 g/dl (12.0-16.0)
[2023-01-27] MEDS ORDERED: SODIUM CHLORIDE 0.9% 250 ML IV PRN (15:00)
--- NOTE | 2023-01-27 17:21 | Hospitalist Progress Note ---
Date of Service January 27, 2023 Assessment & Plan (1) Hemorrhage of muscle: Plan: Patient is a 42 yr female with H/O lupus, antiphospholipid syndrome on chronic AC with warfarin, migraine HAs, prior MRI showing chronic lacunar infarcts, prior preeclampsia/HELLP syndrome, and history of moderate to severe mitral regurgitation who presented to the ED today with worsening right thigh pain and swelling and was found on CTA to have moderate acute intramuscular hemorrhage of right adductor devon muscle and a supratherapeutic INR. Given IV vitamin K 10 mg x 1 in the ED. Intramuscular hemorrhage of the Right adductor Devon Likely secondary to coagulopathy secondary to Coumadin use Suspected pseudoaneurysm Vs active extravasation No history of trauma --Leg CTA:No significant change from the study obtained less than 24 hours earlier. There is persistent moderate amount of intramuscular hemorrhage within the adductor devon muscle with 6 mm focus of pseudoaneurysm versus active extravasation. The amount of hemorrhage has not significantly changed from yesterday's study. --Venous Doppler:No evidence of deep venous thrombus within the right lower extremity. INR reversed with Vit K -- Hold aspirin, Coumadin for now No signs of compartmental syndrome currently Appreciate orthopedics, Vascular Input --Discussed with IR Dr.Ashok Patel at [facility].>> Based on CT results, currently recommends no intervention --Also discussed with hematology Dr. Carlos Matias: Recommends to hold anticoagulation for now --Will need to resume anticoagulation as soon as possible given history of antiphospholipid antibody syndrome --Weightbearing as tolerated Monitor CBC, transfuse as needed (2) Supratherapeutic INR: Plan: INR:5.0>>1.2 S/P Vit K monitor INR (3) Lupus: Plan: Continue home medications Hold anticoagulation for now (4) Antiphospholipid syndrome: Plan: Hold anticoagulation for now (5) Chronic anticoagulation: (6) Migraines: Plan: Continue home medications Plan DVT Px: SCDs Code Status: Full code Admission and Anticipated Discharge Date Admission Date: January 26, 2023 Subjective Patient is seen and examined at bedside States having right eye swelling and pain about the same as yesterday Denies any chest pain, dyspnea, dizziness, nausea, abdominal pain Discussed with orthopedics, IR and hematology today Review of Systems Review of Systems: All systems reviewed & are unremarkable except as noted in Subjective Physical Exam Physical Exam: Physical Exam: Vitals signs as noted above General Appearance:Moderately built and nourished, no apparent distress Head: normocephalic, Atraumatic Eyes: normal inspection, EOMI Neck: supple, Trachea midline Respiratory/Chest: Normal breath sounds, CTA, No accessory muscle use Cardiovascular: S1, S2, No murmur Abdomen/GI:Soft, Non tender, Bowel sounds present Extremities/Musculoskeletal:normal inspection, right thigh swelling, tenderness, faint ecchymosis on posterior aspect Neurologic/Psych:AAOX3, grossly no focal neurological deficits Skin: normal color, warm Results & Data Results & Data Vital Signs (Past 12 Hours) Vital Signs Temp Pulse Pulse Resp BP Pulse Ox O2 Del Method 01/27/23 15:36 85 01/27/23 15:15 37.0 C 72 16 138/95 97 Room Air 01/27/23 10:53 37.0 C 72 16 128/83 98 Room Air 01/27/23 08:30 74 01/27/23 07:04 37.0 C 87 17 127/82 97 Room Air Laboratory Results Short CBC 01/27/23 01/27/23 Range/Units 08:50 14:26 WBC 6.24 (4.8-10.8) K/ul Hgb 11.1 L 10.5 L (12.0-16.0) g/dl Hct 32.3 L 30.7 L (37.0-47.0) % Plt Count 148 (130-400) K/uL BMP 01/27/23 08:50 Sodium 139 Potassium 4.0 Chloride 104 Carbon Dioxide 31 BUN 11 Creatinine 0.94 Glucose 80 Calcium 8.9
[2023-01-27] MEDS: HYDROXYCHLOROQUINE SULFATE 200 MG TAB PO SCH (20:56)
[2023-01-27] MEDS: LORazepam 0.5 MG TAB PO PRN (20:56)
[2023-01-27] MEDS: MONTELUKAST SODIUM 10 MG TABLET PO SCH (20:56)
[2023-01-27 21:31] LABS: Hematocrit (blood only) 32.2 % (37.0-47.0); Hemoglobin 11.1 g/dl (12.0-16.0)
[2023-01-28 06:46] LABS: Hematocrit (blood only) 27.8 % (37.0-47.0); Hemoglobin 9.6 g/dl (12.0-16.0)
[2023-01-28 06:59] LABS: INR 1.1 (0.9-1.1); Prothrombin Time 11.3 Seconds (9.0-12.0)
[2023-01-28] MEDS: VITAMIN B COMPLEX TAB PO SCH (07:42)
[2023-01-28] MEDS: valACYclovir HCL 500 MG TABLET PO SCH (07:42)
[2023-01-28] MEDS: MAGNESIUM OXIDE 400 MG TAB PO SCH (07:42)
[2023-01-28] MEDS: FERROUS SULFATE 325 MG TAB PO SCH (07:43)
--- NOTE | 2023-01-28 08:21 | Communication Note ---
Date of Service: January 28, 2023 New CTA reviewed. No change from previous. No indication for embolization for this 4-6mm area. Most likely embolization not even possible due to size and location. Would continue to observe and try compression with an danya wrap.
--- NOTE | 2023-01-28 10:17 | Ultrasound Report ---
US extremity non-vascular ltd CLINICAL HISTORY: Right leg intramuscular hemorrhage TECHNIQUE: Real-time grayscale sonographic images of the right thigh were obtained. Comparison: None available at the time of this dictation. FINDINGS/IMPRESSION: There is an 8.2 x 6.1 x 4.4 cm mass without a tiny focus of internal vascularity . This may represent a complex hematoma, superimposed infection is considered less likely. ACT 112: Negative or not required by law. Electronically signed by: Cal Munguia M.D. 01/28/2023 10:16 AM
[2023-01-28] MEDS ORDERED: ACETAMINOPHEN 1,000 MG/100 ML VIAL IV PRN (10:35)
[2023-01-28 14:40] LABS: Hematocrit (blood only) 28.6 % (37.0-47.0); Hemoglobin 9.7 g/dl (12.0-16.0)
--- NOTE | 2023-01-28 16:37 | Hospitalist Progress Note ---
Date of Service January 28, 2023 Assessment & Plan (1) Hemorrhage of muscle: Plan: Patient is a 42 yr female with H/O lupus, antiphospholipid syndrome on chronic AC with warfarin, migraine HAs, prior MRI showing chronic lacunar infarcts, prior preeclampsia/HELLP syndrome, and history of moderate to severe mitral regurgitation who presented to the ED today with worsening right thigh pain and swelling and was found on CTA to have moderate acute intramuscular hemorrhage of right adductor devon muscle and a supratherapeutic INR. Given IV vitamin K 10 mg x 1 in the ED. Intramuscular hemorrhage of the Right adductor Devon Likely secondary to coagulopathy secondary to Coumadin use Suspected pseudoaneurysm Vs active extravasation No history of trauma --Leg CTA:No significant change from the study obtained less than 24 hours earlier. There is persistent moderate amount of intramuscular hemorrhage within the adductor devon muscle with 6 mm focus of pseudoaneurysm versus active extravasation. The amount of hemorrhage has not significantly changed from yesterday's study. --Venous Doppler:No evidence of deep venous thrombus within the right lower extremity. INR reversed with Vit K -- Hold aspirin, Coumadin for now No signs of compartmental syndrome currently Appreciate orthopedics, Vascular Input --Discussed with IR Dr[facility]Ashok Patel at [facility].>> Based on CT results, currently recommends no intervention --Also discussed with hematology Dr. Carlos Matias: Recommends to hold anticoagulation for now --Will need to resume anticoagulation as soon as possible given history of antiphospholipid antibody syndrome --Discussed with interventional radiology Dr. Ramiro Rojo today:reviewed images: Recommends to Jacoby wrap proximal thigh, continue to monitor H&H If continues to bleed, will consider embolization --Weightbearing as tolerated Hb 9.7 today Continue to monitor while hospitalized (2) Supratherapeutic INR: Plan: INR:5.0>>1.2>1.1 S/P Vit K monitor INR (3) Lupus: Plan: Continue home medications Hold anticoagulation for now (4) Antiphospholipid syndrome: Plan: Hold anticoagulation for now (5) Chronic anticoagulation: (6) Migraines: Plan: Continue home medications Plan DVT Px: SCDs Code Status: Full code Admission and Anticipated Discharge Date Admission Date: January 27, 2023 Subjective Patient is seen and examined at bedside States having worsening right leg swelling, pain today Also noted discoloration of the leg posteriorly Denies any chest pain, dyspnea, dizziness, nausea, abdominal pain Reports having trouble with ambulation secondary to leg pain No other complaints Review of Systems Review of Systems: All systems reviewed & are unremarkable except as noted in Subjective Physical Exam Physical Exam: Physical Exam: Vitals signs as noted above General Appearance:Moderately built and nourished, no apparent distress Head: normocephalic, Atraumatic Eyes: normal inspection, EOMI Neck: supple, Trachea midline Respiratory/Chest: Normal breath sounds, CTA, No accessory muscle use Cardiovascular: S1, S2, No murmur Abdomen/GI:Soft, Non tender, Bowel sounds present Extremities/Musculoskeletal:normal inspection, right thigh swelling, tenderness, ecchymosis on posterior aspect Neurologic/Psych:AAOX3, grossly no focal neurological deficits Skin: normal color, warm Results & Data Results & Data Vital Signs (Past 12 Hours) Vital Signs Temp Pulse Pulse Resp BP Pulse Ox O2 Del Method 01/28/23 15:45 83 01/28/23 15:27 146/98 H 01/28/23 15:19 37.0 C 78 18 158/101 H 96 Room Air 01/28/23 11:45 37.4 C 76 17 143/105 H 97 Room Air 01/28/23 07:50 78 01/28/23 07:46 36.6 C 83 16 123/82 98 Room Air Laboratory Results Short CBC 01/27/23 01/28/23 01/28/23 Range/Units 20:49 06:17 14:12 Hgb 11.1 L 9.6 L 9.7 L (12.0-16.0) g/dl Hct 32.2 L 27.8 L 28.6 L (37.0-47.0) %
[2023-01-28 20:22] LABS: Hemoglobin 9.2 g/dl (12.0-16.0)
[2023-01-28] MEDS: HYDROXYCHLOROQUINE SULFATE 200 MG TAB PO SCH (20:30)
[2023-01-28] MEDS: MONTELUKAST SODIUM 10 MG TABLET PO SCH (20:30)
[2023-01-28] MEDS ORDERED: SODIUM CHLORIDE 0.9% 1000ML 1,000 ML IV ONE (20:31)
[2023-01-28] MEDS ORDERED: oxyCODONE HCL IR 5 MG TAB (IMMEDIATE RELEASE) PO STA (20:31)
[2023-01-28] MEDS: MELATONIN 3 MG TAB PO PRN (21:06)
[2023-01-28] MEDS ORDERED: OPTIRAY 320 500ml IV ONE (21:46)
--- NOTE | 2023-01-28 23:06 | CT Scan Report ---
Exam(s): CTA EXTREMITY RIGHT LOWER W/WO Contrast IV Amt: 109 ml optiray EXAM: CT Angiography of the Right Lower Extremity Without and With Intravenous Contrast CLINICAL HISTORY: Reason for exam: worsening RLE pain/bruising. TECHNIQUE: Axial computed tomographic angiography images of the right lower extremity without and with intravenous contrast. CTDI is 36.97 mGy and DLP is 774.61 mGy-cm. Automated exposure control was utilized for the study. A dose lowering technique was utilized adhering to the principles of ALARA. MIP reconstructed images were created and reviewed. CONTRAST: Patient received 109 ml optiray of IV contrast COMPARISON: No relevant prior studies available. FINDINGS: VASCULATURE: Right femoral/popliteal arteries: No acute findings. No occlusion or significant stenosis. Right calf/foot arteries: No acute findings. No occlusion or significant stenosis. LOWER EXTREMITY: Bones/joints: No acute fracture. No dislocation. Soft tissues: Soft tissue swelling within the proximal hamstring musculature with overlying subcutaneous edema. Underlying mass or hematoma not excluded. Evaluation is limited on CT scan. Right thigh MRI (hamstring protocol) recommended for further evaluation. IMPRESSION: No acute findings in the right lower extremity arteries. Soft tissue swelling within the proximal hamstring musculature with overlying subcutaneous edema. Underlying mass or hematoma not excluded. Evaluation is limited on CT scan. Right thigh MRI (hamstring protocol) recommended for further evaluation. Electronically signed by: Abilio Hood MD 01/28/23 23:05 PM
[2023-01-29 06:34] LABS: Hematocrit (blood only) 26.1 % (37.0-47.0); Hemoglobin 8.9 g/dl (12.0-16.0)
[2023-01-29 06:52] LABS: INR 1.1 (0.9-1.1); Prothrombin Time 11.3 Seconds (9.0-12.0)
[2023-01-29] MEDS: valACYclovir HCL 500 MG TABLET PO SCH (09:16)
[2023-01-29] MEDS: VITAMIN B COMPLEX TAB PO SCH (09:16)
[2023-01-29] MEDS: MAGNESIUM OXIDE 400 MG TAB PO SCH (09:16)
[2023-01-29] MEDS: FERROUS SULFATE 325 MG TAB PO SCH (09:16)
--- NOTE | 2023-01-29 11:34 | Hospitalist Progress Note ---
Date of Service January 29, 2023 Assessment & Plan (1) Hemorrhage of muscle: Plan: 42 yr female with H/O lupus, antiphospholipid syndrome on chronic AC with warfarin, migraine HAs, prior MRI showing chronic lacunar infarcts, prior preeclampsia/HELLP syndrome, and history of moderate to severe mitral regurgitation who presented to the ED today with worsening right thigh pain and swelling and was found on CTA to have moderate acute intramuscular hemorrhage of right adductor devon muscle and a supratherapeutic INR. Given IV vitamin K 10 mg x 1 in the ED. Intramuscular hemorrhage of the Right adductor Devon Likely secondary to coagulopathy secondary to Coumadin use Suspected pseudoaneurysm Vs active extravasation No history of trauma Leg CTA 01/26/23 :No significant change from the study obtained less than 24 hours earlier. There is persistent moderate amount of intramuscular hemorrhage within the adductor devon muscle with 6 mm focus of pseudoaneurysm versus active extravasation. The amount of hemorrhage has not significantly changed from yesterday's study. Venous Doppler 01/26/23:No evidence of deep venous thrombus within the right lower extremity. INR reversed with Vit K Leg CTA 01/28/23: No acute changes from prior Vascular USS 01/28/23: 8.2 x 6.1 x 4.4 cm mass without a tiny focus of internal vascularity. This may represent a complex hematoma, superimposed infection is considered less likely. Continue to hold aspirin, Coumadin for now No signs of compartmental syndrome currently Vascular input noted. Recommended continuing to observe and to try compression with jacoby wrap Discussed with [employer] [facility] Dr Matias. Recommends continuing to monitor Hb, keep holding warfarin and ASA Will need to resume anticoagulation as soon as possible given history of antiphospholipid antibody syndrome Dr Gomez had discussed with interventional radiology Dr. Ramiro Rojo: reviewed images: Recommends to Jacoby wrap proximal thigh, continue to monitor H&H If continues to bleed, will consider embolization Will continue to monitor Hb (2) Supratherapeutic INR: Plan: INR:5.0>>1.2>1.1 S/P Vit K monitor INR (3) Lupus: Plan: Continue home medications Hold anticoagulation for now (4) Antiphospholipid syndrome: Plan: Hold anticoagulation for now (5) Chronic anticoagulation: (6) Migraines: Plan: Continue home medications Plan DVT Px: SCDs Code Status: Full code I spent a total of 55 minutes coordinating, documenting and providing care for this patient excluding time spent in performance of separately billed services Admission and Anticipated Discharge Date Admission Date: January 27, 2023 Subjective Patient seen and examined Still reports right thigh pain and swelling Denied any dizziness, palpitations, BAHENA Denied any chest pain, cough, shortness of breath Denied fever, chills, nausea, vomiting, abd pain Denied hematochezia, melena, hemoptysis Physical Exam Constitutional: + well hydrated; no acute distress Eyes: PERRL, conjunctivae normal, anicteric sclerae ENMT: external ear and nose normal, oropharynx normal Respiratory: normal respiratory effort, lungs clear to auscultation Cardiovascular: Rate/Rhythm: regular rate and regular rhythm S1 S2 Gastrointestinal (Abdomen): normal bowel sounds, soft, nontender, no hepatosplenomegaly Musculoskeletal: Right thigh is significantly bigger than left with bruising over anteromedial and posterior area, tender Neurologic: PERRL, EOMI, accommodation nl, no face palsy, no dysarthria Psychiatric: A+Ox3, euthymic affect Results & Data Results & Data Vital Signs (Past 12 Hours) Vital Signs Temp Pulse Pulse Resp BP Pulse Ox O2 Del Method 01/29/23 07:44 82 17 123/67 98 Room Air 01/29/23 02:34 36.6 C 86 16 129/79 96 Room Air 01/29/23 01:10 70 Laboratory Results Abnormal lab results 01/28/23 01/28/23 01/28/23 Range/Units 14:12 20:06 21:43 Hgb 9.7 L 9.2 L (12.0-16.0) g/dl Hct 28.6 L 27.0 L (37.0-47.0) % Total Creatine Kinase 434 H (26-192) U/L 01/29/23 Range/Units 05:34 Hgb 8.9 L (12.0-16.0) g/dl Hct 26.1 L (37.0-47.0) % Total Creatine Kinase (26-192) U/L
[2023-01-29 12:54] LABS: Hematocrit (blood only) 27.6 % (37.0-47.0); Hemoglobin 9.3 g/dl (12.0-16.0); Mean Corpuscular Hemoglobin 30.3 pg (25.0-34.0); Mean Corpuscular Hgb Conc 33.7 g/dL (32.0-36.0); Mean Corpuscular Volume 89.9 fL (80.0-100.0); Platelet Count 156 K/uL (130-400); RDW Coefficient of Variation 12.8 % (11.5-14.5); RDW Standard Deviation 41.5 fL (36.4-46.3); Red Blood Count 3.07 M/uL (4.20-5.40)
[2023-01-29 13:17] LABS: Calcium 8.7 mg/dl (8.6-10.3); Potassium 3.9 mmol/L (3.5-5.1)
[2023-01-29 13:22] LABS: BUN Creatinine Ratio 14.1 (10-20); Creatinine Clr Calc Pharmacy 93.2 ml/min; Est GFR (African American) 110.2 ml/min; Est GFR (Non-African American) 95.1 ml/min
[2023-01-29] MEDS: MONTELUKAST SODIUM 10 MG TABLET PO SCH (21:10)
[2023-01-29] MEDS: HYDROXYCHLOROQUINE SULFATE 200 MG TAB PO SCH (21:10)
[2023-01-29] MEDS: MELATONIN 3 MG TAB PO PRN (21:13)
[2023-01-29 21:21] LABS: Hematocrit (blood only) 26.2 % (37.0-47.0); Hemoglobin 8.9 g/dl (12.0-16.0)
[2023-01-29] MEDS: traMADol HCL 50 MG TABLET PO PRN (23:45)
[2023-01-30] MEDS: traMADol HCL 50 MG TABLET PO PRN (05:27)
[2023-01-30] MEDS ORDERED: ACETAMINOPHEN 325 MG TAB PO PRN (05:36)
[2023-01-30] MEDS ORDERED: MELATONIN 3 MG TAB PO PRN (05:36)
[2023-01-30 06:11] LABS: Hematocrit (blood only) 27.2 % (37.0-47.0); Hemoglobin 9.1 g/dl (12.0-16.0); Mean Corpuscular Hemoglobin 29.9 pg (25.0-34.0); Mean Corpuscular Hgb Conc 33.5 g/dL (32.0-36.0); Mean Corpuscular Volume 89.5 fL (80.0-100.0); Mean Platelet Volume 10.7 fL (9.4-12.4); Platelet Count 151 K/uL (130-400); RDW Coefficient of Variation 12.7 % (11.5-14.5); RDW Standard Deviation 41.1 fL (36.4-46.3); Red Blood Count 3.04 M/uL (4.20-5.40)
[2023-01-30 06:16] LABS: BUN Creatinine Ratio 16.3 (10-20); Calcium 8.6 mg/dl (8.6-10.3); Creatinine Clr Calc Pharmacy 84.6 ml/min; Est GFR (African American) 97.9 ml/min; Est GFR (Non-African American) 84.5 ml/min; Potassium 3.9 mmol/L (3.5-5.1)
[2023-01-30 06:25] LABS: Prothrombin Time 10.8 Seconds (9.0-12.0)
--- NOTE | 2023-01-30 07:02 | Ultrasound Report ---
RIGHT LOWER EXTREMITY VENOUS DOPPLER HISTORY: Right leg swelling. hx of antiphospholipid syndrome. DVT? COMPARISON STUDY: Right leg CTA 01/28/2023. FINDINGS: There is normal compressibility, flow, and augmentation within the right lower extremity de ep venous system. There is a complex intramuscular collection within the right hamstring which measur es approximately 10 x 7 x 5 cm. This favors intramuscular hematoma. Small amount of vascular flow wit hin this collection favors a small focus of active arterial extravasation. IMPRESSION: 1. No DVT within the right lower extremity. 2. There is a complex intramuscular collection within the right hamstring which measures approximatel y 10 x 7 x 5 cm. This favors intramuscular hematoma. Small amount of vascular flow within this collec tion favors a small focus of active arterial extravasation versus small pseudoaneurysm. This is uncha nged from the prior right lower leg CTA's. ACT 112: Negative or not required by law. Electronically signed by: Pedro Luis Medina M.D. 01/30/2023 6:59 AM
[2023-01-30] MEDS: FERROUS SULFATE 325 MG TAB PO SCH (09:56)
[2023-01-30] MEDS: valACYclovir HCL 500 MG TABLET PO SCH (09:56)
[2023-01-30] MEDS: MAGNESIUM OXIDE 400 MG TAB PO SCH (09:56)
[2023-01-30] MEDS: VITAMIN B COMPLEX TAB PO SCH (09:57)
--- NOTE | 2023-01-30 13:40 | Discharge Summary ---
Date of Service January 30, 2023 Admission HPI Per Admitting Provider This is a 42 y/o female with lupus, antiphospholipid syndrome on chronic AC with warfarin, migraine HAs, MRI showing chronic lacunar infarcts, prior preeclampsia/HELLP syndrome, and history of moderate to severe mitral regurgitation who presented to the ED today with worsening right thigh pain and swelling. Pt first noticed the pain in her posterior right thigh yesterday while getting ready for her son's birthday republican. She noted that it was worse with pressure to the area, such as sitting, and that her jeans were a little light in the right thigh. Took some ibuprofen for the pain but by last night it was so severe that she couldn't sit or put any pressure on the area. This morning, she noted increased swelling and pain in the area so she came to the ED for evaluation. She has never had pain like this before. She denies any known injury or trauma to the area. INR on 01/17 was therapeutic at 2.1. No new medications or supplements recently. Of note, she was seen in the ED a couple of weeks ago after she developed swelling and ecchymosis behind her right knee. She had recently flown so she was concerned about possible DVT - work-up in the ED was negative for DVT but did show a small popliteal hematoma, which has since improved. Admission Exam Per Admitting Provider Constitutional: well developed and well nourished; no acute distress Eyes: + anicteric sclerae Neck: trachea midline Respiratory: no respiratory distress and no labored breathing Auscultation: lungs clear to auscultation bilaterally; no rales, no rhonchi and no wheezes Cardiovascular: Rate/Rhythm: regular rate and regular rhythm Heart Sounds: + murmur Vessels: dorsalis pedis pulses present and radial pulses present Extremities: no pedal edema Gastrointestinal (Abdomen): Inspection/Auscultation: normal bowel sounds; abdomen not distended Percussion/Palpation: abdomen soft; abdomen nontender Musculoskeletal: right thigh with compression wrap in place - tender to palpation medial posterior thigh on right, no overt ecchymosis, +swelling Skin: no jaundice Neurologic: moves all extremities; no focal motor deficits and not confused Psychiatric: A+Ox3, euthymic affect Principal Diagnosis Hemorrhage into the muscle Supratherapeutic INR Anemia Discharge Exam Constitutional + well hydrated; no acute distress Eyes PERRL, conjunctivae normal, anicteric sclerae ENMT external ear and nose normal, oropharynx normal Respiratory normal respiratory effort, lungs clear to auscultation Cardiovascular Rate/Rhythm: regular rate and regular rhythm S1 S2 Gastrointestinal (Abdomen) normal bowel sounds, soft, nontender, no hepatosplenomegaly Musculoskeletal Right thigh is bigger than left with bruising over anteromedial and posterior area, tender Neurologic PERRL, EOMI, accommodation nl, no face palsy, no dysarthria Psychiatric A+Ox3, euthymic affect Discharge Data Allergies Allergy/AdvReac Type Severity Reaction Status Date / Time bee venom protein (honey bee) Allergy Intermediate SHORTNESS Verified 01/26/23 15:33 OF BREATH Consultations 01/26/23 13:57 ED Decision to Admit Stat 01/26/23 18:02 Consult Orthopedic Surgery Routine 01/27/23 08:22 Consult Vascular Surgery Routine Ordered Studies 01/26/23 10:09 US venous doppler LE RT Stat 01/26/23 12:40 CT angio femur RT wo/w con Stat 01/27/23 07:00 CTA femur RT wo/w con [CT angio femur RT wo/w con] Routine 01/28/23 08:06 US extremity non-vascular ltd Urgent 01/28/23 20:29 CT angio femur RT wo/w con Urgent 01/29/23 22:44 US venous doppler LE RT Routine Hospital Course (1) Hemorrhage of muscle: 42 yr female with H/O lupus, antiphospholipid syndrome on chronic AC with warfarin, migraine HAs, prior MRI showing chronic lacunar infarcts, prior preeclampsia/HELLP syndrome, and history of moderate to severe mitral regurgitation who presented to the ED today with worsening right thigh pain and swelling and was found on CTA to have moderate acute intramuscular hemorrhage of right adductor devon muscle and a supratherapeutic INR. Given IV vitamin K 10 mg x 1 in the ED. Intramuscular hemorrhage of the Right adductor Devon Likely secondary to coagulopathy secondary to Coumadin use Suspected pseudoaneurysm Vs active extravasation No history of trauma Leg CTA 01/26/23 :No significant change from the study obtained less than 24 hours earlier. There is persistent moderate amount of intramuscular hemorrhage within the adductor devon muscle with 6 mm focus of pseudoaneurysm versus active extravasation. The amount of hemorrhage has not significantly changed from yesterday's study. Venous Doppler 01/26/23:No evidence of deep venous thrombus within the right lower extremity. INR reversed with Vit K Leg CTA 01/28/23: No acute changes from prior Had serial imaging while inpatient Was evaluated by Vascular surgeon and case discussed with patient's Ski Molder and [facility] team No intervention recommended at this time. Hb has been stable at 8.9-9.3 in the past 24 hours I discussed with Ski Molder Dr Matias today. He recommends not resuming aspirin and warfarin until outpatient follow up with PCP. Patient advised to follow up with slubber tender on when anticoagulation can be safely resumed (2) Supratherapeutic INR: INR:5.0>>1.2>1.1 S/P Vit K As above Warfarin on hold (3) Lupus: (4) Antiphospholipid syndrome: (5) Chronic anticoagulation: (6) Migraines: Continue home medications Total Time Total Time Spent Total Time Spent (In Minutes): 55 Total Time Includes: Examination of the Patient, Discharge Planning, Medication Reconciliation and Communication With Other Providers Discharge Plan Discharge Items Patient Disposition: Home - Self-Care Reason For Visit: RIGHT ADDUCTOR IM HEMORRHAGE Discharge Diagnosis: Hemorrhage into the muscle Supratherapeutic INR Anemia Activity: Resume your previous activity Non-emergency contact: Primary Care Provider Call non-emergency contact if: you have any medication questions and your symptoms worsen Follow-up/Referrals: Carlos Matias MD [Surgeon] - (Date & Time 01/31/2023 10:15 AM Provider Carlos Matias MD Department Hematology/Oncology [facility] ) Shivani Gamboa MD [Primary Care Provider] - (Date & Time 02/05/2023 10:40 AM Provider Shivani Gamboa MD Department General Internal Medicine [facility] ) Diet: Regular Addtl Attending Provider Instructions: Mrs Ding You came to the hospital complaining of right thigh pain. You were evaluated and found to have bleeding into the thigh muscle. Your INR was elevated at 5 on admission and you got vitamin K to reverse this. Your hemoglobin dropped due to the bleeding. Your aspirin and warfarin have since been held. Please do not resume this for now until advised to by your Doctors (Ski Molder and Primary Doctor). Please ensure follow up with your Ski Molder and Primary Doctor. They will recheck your blood counts on follow up for monitoring. It was a pleasure taking care of you. Pending Studies at Discharge: Yes (Anticardiolipin antibody tests) Stand-Alone Forms: [facility], Smoking Cessation Medications and DC Order Prescriptions: New acetaminophen 325 mg Tablet 650 mg PO Q6H PRN (Reason: mild pain (scale score 1-4)) Qty: 30 0RF tramadol 50 mg Tablet 25 mg PO Q6H PRN (Reason: Moderate to severe pain) Qty: 14 0RF Continued valacyclovir 500 mg tablet 500 mg PO DAILY ferrous sulfate 325 mg (65 mg iron) Tablet 325 mg PO DAILY montelukast 10 mg tablet 10 mg PO DAILY hydroxychloroquine 200 mg tablet 300 mg PO HS loratadine 10 mg Tablet 10 mg PO DAILY PRN (Reason: Allergy Symptoms) riboflavin (vitamin B2) 400 mg Tablet 400 mg PO DAILY magnesium oxide 400 mg magnesium Tablet 400 mg PO DAILY Ubrelvy 50 mg tablet 50 mg PO UD PRN (Reason: Migraine Headache) Rx Instructions: Take 1 tablet at onset of migraine and may repeat in 2 hours if needed. No more then 2 tablets in 24 hours Discontinued warfarin 5 mg tablet 20 mg PO UD Rx Instructions: Per anticoagulation clinic aspirin 81 mg Tablet,Chewable 81 mg PO DAILY Discharge Orders: Discharge Order (Routine); Ordered 01/30/23 Ordered By: Tori Traylor Admission Data Admit Date/Time: 01/27/23 18:33 Attending Provider: Tori Traylor I. Admit Provider: Chang Lee Primary Care Provider: Shivani Gamboa Other Providers: Chang Lee ; Tacho Coulter ; Jarrett Hurtado ; Avinash Gomez Other Interventions: Discharge Summary Assessment (RN) Last Done: 01/30/23 13:45
[2023-02-04 00:16] LABS: Anti Cardiolipin Ab IgG >112.0 GPL-U/mL; Anti Cardiolipin Ab IgM 3.1 MPL-U/mL; Beta-2-Microglobulin 1.89 mg/L (< OR = 2.51)
[2023-02-05 10:33] LABS: DRVVT 1:1 Reflex Do Not Order CORRECTED (CORRECTED); DRVVT Neutralization (Reflex) Positive (Negative); Lupus Hex Phase (Rflxdonotord) Weak Positive (Negative); Thrombin Time (reflex only) 15 sec (13-19)
== END 2023-01-30 15:48 | disposition home or self-care (01) | DRG 813 ==
LOC: ED 09:35 → 2E 09:35 → SUATTDRO 14:56 → 2E 16:04 → SUATTDRO 01-27 18:33